=== PATIENT | male | born 1935 | race Caucasian/White ===

== ENCOUNTER 2020-03-15 12:00 | Inpatient (IN) | payer OTHER ==
[~2020-03-15] VITALS: Ht 184.2 cm; Wt 73.8 kg
[2020-03-15 09:34] VITALS: BP 140/80; PULSE 78; RESP 16; TEMP 97
--- NOTE | 2020-03-17 12:00 | NUR ---
KEYSHAWN GALAN. NOTIFIED OF PT TAKING ELIQUIS THIS AM, PER KEYSHAWN ASK PT TO STOP ELIQUIS NOW, NOT TO TAKE ANY MORE DOSES. ABNORMAL POTASSIUM AND PT LEVELS REPORTED, NO NEW ORDERS OK TO PROCEED.
[2020-03-18] VITALS (14 sets, daily range): BP systolic 129–175; BP diastolic 49–73; PULSE 43–84; RESP 13–18; TEMP 96–99.4; O2SAT 97–99
[2020-03-18] MEDS ORDERED: LACTATED RINGERS 1000ML 2,000 ML IV ONE (09:40)
[2020-03-18] MEDS ORDERED: SODIUM CHLORIDE 0.9% 1000ML 2,000 ML IV ONE (09:48)
[2020-03-18] MEDS ORDERED: CEFAZOLIN SODIUM 1 GM VIAL ONE ×2 (10:30→12:13)
[2020-03-18] MEDS ORDERED: IODIXANOL 320 MG/ML 100 ML VIAL ONE (11:21)
[2020-03-18] MEDS ORDERED: HEPARIN SODIUM 1000UNIT/ML 10ML VIAL ONE ×2 (11:21→12:44)
[2020-03-18] MEDS ORDERED: NEOSTIGMINE 5MG/5ML SYR IV ONE (11:51)
[2020-03-18] MEDS ORDERED: PROPOFOL 10 MG/ML 20ML VIAL IV ONE (11:51)
[2020-03-18] MEDS ORDERED: ONDANSETRON HCL 4 MG/2 ML VIAL ONE (11:51)
[2020-03-18] MEDS ORDERED: ROCURONIUM BROMIDE 10MG/1ML 5ML VL ONE (11:51)
[2020-03-18] MEDS ORDERED: MIDAZOLAM HCL 1 MG/ML 2ML VIAL ONE (11:51)
[2020-03-18] MEDS ORDERED: GLYCOPYRROLATE 0.2 MG/ML 5 ML VIAL ONE ×2 (11:51→14:11)
[2020-03-18] MEDS ORDERED: LIDOCAINE HCL 1% 20 ML VIAL ONE (11:52)
[2020-03-18] MEDS ORDERED: FENTANYL CITRATE PF 50 MCG/1 ML 2ML VIAL ONE (11:52)
[2020-03-18] MEDS ORDERED: PHENYLEPHRINE HCL 10 MG/ML 1ML VIAL IV ONE (12:02)
[2020-03-18] MEDS ORDERED: EPINEPHRINE 1 MG/ML AMPULE ONE (12:25)
[2020-03-18] MEDS ORDERED: ONDANSETRON HCL 4 MG/2 ML VIAL IV PRN (14:30)
[2020-03-18] MEDS ORDERED: MORPHINE SULFATE 4 MG/1ML SYG IV PRN (14:30)
[2020-03-18] MEDS ORDERED: TEMAZEPAM 30 MG CAP PO PRN (14:30)
[2020-03-18] MEDS ORDERED: SODIUM CHLORIDE 0.9% 1000ML 1,000 ML IV SCH (14:30)
[2020-03-18] MEDS ORDERED: ACETAMINOPHEN 325 MG TAB PO PRN (14:30)
[2020-03-18] MEDS: HYDRALAZINE HCL 20 MG/ML VIAL IV PRN (18:16)
[2020-03-18] MEDS: CEFAZOLIN SODIUM 1 GM VIAL IVP SCH (20:20)
[2020-03-18] MEDS: HYDROXYZINE HCL 25 MG TABLET PO SCH (20:29)
[2020-03-18] MEDS: CARVEDILOL 3.125 MG TABLET PO SCH (20:30)
[2020-03-18] MEDS ORDERED: ATORVASTATIN CALCIUM 20 MG TABLET PO SCH (21:00)
[2020-03-19] VITALS (8 sets, daily range): BP systolic 123–174; BP diastolic 55–72; PULSE 72–90; RESP 12–18; TEMP 97.4–99.1; O2SAT 97–99
[2020-03-19] MEDS: CEFAZOLIN SODIUM 1 GM VIAL IVP SCH ×2 (04:06→11:50)
[2020-03-19] MEDS: HYDRALAZINE HCL 20 MG/ML VIAL IV PRN (04:18)
[2020-03-19] MEDS ORDERED: LIDOCAINE HCL-MPF 1% 2ML VIAL IV PRN (08:00)
[2020-03-19] MEDS ORDERED: POTASSIUM CHLORIDE 20MEQ/100ML 100 ML IV PRN (08:00)
[2020-03-19] MEDS ORDERED: MULTIVITAMIN WITH MINERALS TABLET PO SCH (09:00)
[2020-03-19] MEDS ORDERED: APIXABAN 5 MG TABLET PO SCH (09:00)
[2020-03-19] MEDS ORDERED: FLUTICASONE PROPIONATE 50MCG/SPRAY 16 GM BOTTLE EN SCH (09:00)
[2020-03-19] MEDS ORDERED: FISH OIL 1000 MG/CAP PO SCH (09:00)
[2020-03-19] MEDS ORDERED: FLAXSEED OIL 1000 MG PO SCH (09:00)
[2020-03-19] MEDS ORDERED: HYDROCHLOROTHIAZIDE 25 MG TABLET PO SCH (09:00)
[2020-03-19] MEDS ORDERED: VITAMIN E 400 UNIT CAPSULE PO SCH (09:00)
[2020-03-19] MEDS ORDERED: HOME MEDICATION 1 EACH PO SCH (09:00)
[2020-03-19] MEDS: POTASSIUM CHLORIDE 10% ELIXIR 20 MEQ/15 ML UDCUP PO PRN ×2 (09:00→10:59)
[2020-03-19] MEDS: HYDROXYZINE HCL 25 MG TABLET PO SCH (09:02)
[2020-03-19] MEDS: CARVEDILOL 3.125 MG TABLET PO SCH (09:02)
--- NOTE | 2020-03-19 09:55 | NUR ---
CALL MADE TO RHEA COSTA MESSAGE FOR [place], WILL FOLLOW UP Addendum: 03/19/20 at 0957 by RAMON LEON RN CM Amended: Links added.
[2020-03-19] MEDS: POTASSIUM CHLORIDE 20 MEQ ERTAB PO PRN ×2 (11:04→13:24)
--- NOTE | 2020-03-19 11:45 | NUR ---
AT 0730 DR. MANJARREZ CAME BY TO SEE PT. STATED THAT IF PT CAN AMBULATE AND TOLERATE MEALS HE CAN GO HOME. AT 1100 PT WAS ABLE TO AMBULATE TO BATHROOM. A-LINE WAS REMOVED. BLOOD PRESSURE STABLE. Merrick MALDONADO MADE AWARE OF PT CONDTION AND SAW PT AT 0900. POTASSIUM IS BEING COVERED PER PROTOCOL.
--- NOTE | 2020-03-19 13:00 | NUR ---
POTASSIUM LABS DRAWN PRIOR TO DISCHARGE. POTASSIUM LEVEL IS 3.3, PT FIXED ON LEAVING. Merrick MALDONADOP NOTIFIED. 40MEQ OF POTASSIUM GIVEN PRIOR TO DISCHARGE.
== END 2020-03-19 14:31 | disposition home or self-care (01) | DRG 315 ==
LOC: EDSTATUS 12:00 → DAHIP 03-18 09:26
PROVIDERS: ADMIT Internal Medicine Critical Care Medicine; ATTEND Internal Medicine Critical Care Medicine
PROC: 04WY3DZ Revision of Intraluminal Device in Lower Artery, Percutaneous Approach (ICD-10-PCS; 2020-03-18)
PROC: B4101ZZ Fluoroscopy of Abdominal Aorta using Low Osmolar Contrast (ICD-10-PCS; principal; 2020-03-18 12:00)
DX: T82.898A Other specified complication of vascular prosthetic devices, implants and grafts, initial encounter (principal); I48.19 Other persistent atrial fibrillation; I71.4 Abdominal aortic aneurysm, without rupture; E78.5 Hyperlipidemia, unspecified; I25.10 Atherosclerotic heart disease of native coronary artery without angina pectoris; M47.812 Spondylosis without myelopathy or radiculopathy, cervical region; Z79.01 Long term (current) use of anticoagulants; Z79.899 Other long term (current) drug therapy; Z86.79 Personal history of other diseases of the circulatory system; Z95.1 Presence of aortocoronary bypass graft; Z20.828 Contact with and (suspected) exposure to other viral communicable diseases; Y71.8 Miscellaneous cardiovascular devices associated with adverse incidents, not elsewhere classified; Y92.89 Other specified places as the place of occurrence of the external cause; Z85.038 Personal history of other malignant neoplasm of large intestine; Z85.46 Personal history of malignant neoplasm of prostate

== ENCOUNTER → 2020-05-11 | Outpatient (CLI) | payer OTHER ==
[~2020-05-11] MED LIST: APIX5TAB PO; ATOR20TA65 PO; CARV3.12 PO; HYDR-2534 PO; HYDR-3421 PO; IOHEXOL 350 MG/ML 100ML INFUS..BTL IV ONE; POTA99TA21 PO; VITA100012 PO
== END | disposition home or self-care (01) ==
LOC: RAH 08:48
PROVIDERS: ATTEND Internal Medicine Cardiovascular Disease
DX: I71.4 Abdominal aortic aneurysm, without rupture (principal); K57.30 Diverticulosis of large intestine without perforation or abscess without bleeding; Z90.89 Acquired absence of other organs; Z95.818 Presence of other cardiac implants and grafts
CPT/HCPCS: 74174; Q9967